=== PATIENT | female | born 1980 | race Caucasian/White ===

== ENCOUNTER 2018-07-18 16:09 | Observation (INO) | payer OTHER ==
--- NOTE | 2018-07-18 16:40 | ED ---
ENT HPI - General Chief complaint: ENT Stated complaint: sore throat Time Seen by Provider: 07/18/18 16:09 Source: patient, EMS, RN notes reviewed Mode of arrival: EMS Limitations: no limitations - History of Present Illness Initial comments: This is a 38-year-old female with a benign past medical history who had the onset last evening of a sore throat which got progressively worse today she states she had difficulty swallowing this morning.. No fevers chills or sweats she did have some slight right ear pain. She presented to [facility] and after workup was discovered to have evidence of epiglottitis. No ENT is available she was transferred here for further evaluation. She denies any fevers chills nausea vomiting sweats or other symptoms no other medical history she is a smoker of about one half pack per day. She was noted also have an elevated white blood cell count. She was given IV Unasyn as well as Decadron. At this time she is in no distress he still has a slight sore throat she does not require any pain medication at this time. MD complaint: sore throat - Related Data Home Medications Medication Instructions Recorded Confirmed Naproxen Sodium [Aleve] 220 mg PO DAILY PRN 07/18/18 07/18/18 Vitamin C/Biotin [Hair, Skin and 1 tab PO DAILY 07/18/18 07/18/18 Nails] Allergies Allergy/AdvReac Type Severity Reaction Status Date / Time No Known Allergies Allergy Verified 07/18/18 16:29 Review of Systems ROS Statement: Those systems with pertinent positive or pertinent negative responses have been documented in the HPI. ROS Other: All systems not noted in ROS Statement are negative. Past Medical History Past Medical History: No Reported History History of Any Multi-Drug Resistant Organisms: None Reported Past Surgical History: Cholecystectomy Past Psychological History: No Psychological Hx Reported Smoking Status: Current every day smoker Past Alcohol Use History: Rare Past Drug Use History: None Reported General Exam - General Exam Comments Initial Comments: This a well-developed well-nourished awake alert oriented 3 female Limitations: no limitations General appearance: alert, in no apparent distress Head exam: Present: atraumatic, normocephalic, normal inspection Eye exam: Present: normal appearance, PERRL, EOMI. Absent: scleral icterus, conjunctival injection, periorbital swelling ENT exam: Present: normal exam, mucous membranes moist, other (Mild posterior pharyngeal erythema no exudates no overt swelling noted to the uvula or peritonsillar region.) Neck exam: Present: normal inspection, full ROM (No stridor JVD or bruits), lymphadenopathy, other. Absent: tenderness, meningismus Respiratory exam: Present: normal lung sounds bilaterally. Absent: respiratory distress, wheezes, rales, rhonchi, stridor Cardiovascular Exam: Present: regular rate, normal rhythm, normal heart sounds. Absent: systolic murmur, diastolic murmur, rubs, gallop, clicks GI/Abdominal exam: Present: soft, normal bowel sounds. Absent: distended, tenderness, guarding, rebound, rigid Extremities exam: Present: normal inspection, full ROM, normal capillary refill. Absent: tenderness, pedal edema, joint swelling, calf tenderness Back exam: Present: normal inspection Neurological exam: Present: alert, oriented X3, CN II-XII intact Psychiatric exam: Present: normal affect, normal mood Skin exam: Present: warm, dry, intact, normal color. Absent: rash Course Vital Signs 07/18/18 07/18/18 16:11 17:56 Temperature 98.6 F 98.5 F Pulse Rate 71 60 Respiratory 18 18 Rate Blood Pressure 138/81 134/92 O2 Sat by Pulse 97 98 Oximetry Medical Decision Making - Medical Decision Making Reevaluation patient is resting comfortably she does have some throat pain. She will be admitted did discuss case with Dr. Moyer. ENT will be consulted - Radiology Data Radiology results: report reviewed (I did review the imaging and reports are is evidence of possible epiglottitis phlegmon isn't ruled out.), image reviewed Disposition Clinical Impression: Epiglottitis, Leukocytosis Disposition: ADMITTED IP TO THIS [facility] Condition: Stable Referrals: None,Stated [Primary Care Provider] - 1-2 days
[2018-07-18] MEDS ORDERED: KETOROLAC 30 MG/ML 1 ML VIAL IVP STA (17:44)
[2018-07-18] MEDS ORDERED: ACETAMINOPHEN TAB 325 MG TAB PO PRN (18:06)
[2018-07-18] MEDS ORDERED: NALOXONE 0.4 MG/ML 1 ML VIAL IV PRN (18:06)
[2018-07-18 19:58] VITALS: RESP 16
[2018-07-18] MEDS ORDERED: MORPHINE SULFATE 2 MG/ML SYRINGE IVP PRN (20:20)
[2018-07-18] MEDS: SODIUM CHLORIDE 0.9% 1,000 ML IV SCH (20:39)
[2018-07-18] MEDS: DEXAMETHASONE SOD PHOSPHATE 10 MG/ML 1 ML VIAL IV SCH (20:39)
[2018-07-18] MEDS: KETOROLAC 30 MG/ML 1 ML VIAL IVP SCH (23:22)
[2018-07-18] MEDS: PIPERACILLIN-TAZOBACTAM 3.375 GM in SODIUM CHLORIDE 0.9% 100 ML IVPB SCH (23:22)
[2018-07-19] MEDS: KETOROLAC 30 MG/ML 1 ML VIAL IVP SCH ×3 (05:41→17:23)
[2018-07-19] MEDS: PIPERACILLIN-TAZOBACTAM 3.375 GM in SODIUM CHLORIDE 0.9% 100 ML IVPB SCH ×2 (07:30→17:04)
[2018-07-19] MEDS: DEXAMETHASONE SOD PHOSPHATE 10 MG/ML 1 ML VIAL IV SCH (07:30)
--- NOTE | 2018-07-19 07:44 | CONS ---
CONSULTATION REASON FOR CONSULTATION: Epiglottitis. HISTORY: This is a 38-year-old white female who presented to outside ER yesterday morning with 6- 8 hour history of a sore throat, which was diffuse, but more on the right than the left in the lower throat. This was progressing and was having difficulty with swallowing. She had CT scan which had a question of epiglottitis and therefore was transferred to this hospital. She is seen by Dr. Britt who felt that she was in no distress, but was admitted for IV antibiotics and steroids. She is tolerating her own secretions and had no stridor or voice changes. She has improved some, so he felt that she could be seen this morning. She has improved overnight. She is tolerating oral fluids without difficulty. She has had no respiratory difficulty or voice changes. She has not had sore throats in the past. She does smoke. She had a white blood cell count of 19,000 at the outside hospital. She has been afebrile during this admission. She felt that the IV antibiotics and steroids did help her symptoms. PAST MEDICAL HISTORY: Unremarkable. PAST SURGICAL HISTORY: Cholecystectomy. ALLERGIES: No known drug allergies. MEDICATIONS: Zosyn and Decadron. Outside medications naproxen, vitamin C with biotin 8. SOCIAL HISTORY: Does smoke 1/2 pack of cigarettes per day. Alcohol consumption rare. REVIEW OF SYSTEMS: As in the chart already and noncontributory, other than that as above. PHYSICAL EXAM: GENERAL: This is a well-developed adult white female in no acute distress. Her voice is normal. There is no stridor. She is tolerating her own secretions and drinking water without difficulty. VITAL SIGNS: Show she is afebrile with all vital signs stable otherwise. HEENT/HEAD: Normocephalic and atraumatic. EARS: Bilaterally canals clear. Nose shows no drainage or obstruction. Mouth and throat, oropharynx shows tonsils +2 without erythema or exudate. The hypopharynx and larynx shows slight edema of the epiglottis as well as arytenoids bilaterally with no erythema. Normal vocal cord mobility. Excellent airway overall. No masses or focal swelling noted. swelling otherwise noted. Neck is supple without adenopathy or tenderness. ASSESSMENT: 1. Acute supraglottitis. 2. Tobacco abuse. PLAN: Patient has improved markedly. Her illness may be even viral in nature. She is on empiric Zosyn and Decadron. She will continue on the present medications today. Would recommend at least 2 more doses of IV antibiotics and IV steroids and if doing well at that point, may be able to be discharged. Discharge medications would need to be continued steroids and antibiotics. Antibiotic choice would be something such as cefuroxime. Advising of smoking also. The primary service will assess her still today. She should have repeat CBC also. Will leave to the discretion of the primary service. This may be skewed somewhat also. However, based on the fact that she has been on steroids. Patient then could follow up in our office later this week to be sure she is progressing and if discharged tonight or tomorrow morning, then she will call if she has any recurrent symptoms. If there are questions regarding this consultation, please feel free to contact me. BOONE / SATHYA: [phone] /
--- NOTE | 2018-07-19 07:56 | PCN ---
PROCEDURE NOTE PROCEDURE NOTE: PREOPERATIVE DIAGNOSIS: Epiglottitis. POSTOPERATIVE DIAGNOSIS: Mild supraglottitis. PROCEDURE: Flexible laryngoscopy. ANESTHESIA: None. COMPLICATIONS: None. BLOOD LOSS: None. FINDINGS: See consult note. PROCEDURE DESCRIPTION: Patient was in her hospital bed and informed consent was obtained. Flexible laryngoscopy was performed to the left nasal cavity with systematic evaluation of left nasal cavity, nasopharynx, oropharynx, hypopharynx and larynx with the above findings noted. The laryngoscope was withdrawn. Patient tolerated the procedure well with no complications. Between consultation and procedure approximately 40 minutes spent including consultation and counseling. MMODL / IJN: [id number] /
[2018-07-19 12:46] VITALS: BP 124/77; PULSE 71; TEMP 98.6
--- NOTE | 2018-07-19 14:42 | P.HPIM ---
History of Present Illness H&P Date: 07/19/18 Chief Complaint: Pain in the throat 38-year-old female with no significant past medical history comes in for above- mentioned complaints. Patient says that she was okay until Thursday when she started having pain in the right side of the throat which is diffuse he said that she was having difficulty swallowing. She went into the ER where she had a CAT scan done which shows questionable epiglottitis. She was transferred to [facility] ER but that concern and to be evaluated by ENT. Patient did not complain of any fever or chills, no chest pain racing heart, no headache, loss of vision or blurry vision, no stiff neck, noting only numbness of his extremities, no itch no rash. ER course-temperatures 98.6 respiratory rate 16 pulse 71 blood pressure 124/77 satting 97 percent on room air. As per the labwork done the other ER she was having elevated WBC. She was started on Decadron and Zosyn and admitted to the hospitalist service for further evaluation and management. Review of Systems All systems: negative Past Medical History Past Medical History: Cancer Additional Past Medical History / Comment(s): Cervical cancer 2018 History of Any Multi-Drug Resistant Organisms: None Reported Past Surgical History: Cholecystectomy Additional Past Surgical History / Comment(s): Cervical cancer removal 2018 Past Anesthesia/Blood Transfusion Reactions: No Reported Reaction Past Psychological History: No Psychological Hx Reported Smoking Status: Current every day smoker Past Alcohol Use History: Rare Past Drug Use History: None Reported Medications and Allergies Home Medications Medication Instructions Recorded Confirmed Type Naproxen Sodium [Aleve] 220 mg PO DAILY PRN 07/18/18 07/18/18 History Vitamin C/Biotin [Hair, Skin and 1 tab PO DAILY 07/18/18 07/18/18 History Nails] Acetaminophen Tab [Tylenol] 650 mg PO Q6HR PRN #60 tab 07/19/18 Rx Cefuroxime Axetil [Ceftin] 500 mg PO BID 10 Days #6 tab 07/19/18 Rx methylPREDNISolone Dose Pack 4 mg PO DIRECTED #21 package 07/19/18 Rx [Medrol Dose Pack] Allergies Allergy/AdvReac Type Severity Reaction Status Date / Time No Known Allergies Allergy Verified 07/18/18 16:29 Physical Exam Vitals: Vital Signs Temp Pulse Pulse Pulse Resp BP BP 07/19/18 12:45 98.6 F 71 16 124/77 07/19/18 05:00 97.5 F L 53 L 16 93/53 07/18/18 23:45 72 16 07/18/18 18:56 98.1 F 71 16 139/71 07/18/18 17:56 98.5 F 60 18 134/92 07/18/18 16:11 98.6 F 71 18 138/81 Pulse Ox 07/19/18 12:45 97 07/19/18 05:00 97 07/18/18 23:45 07/18/18 18:56 95 07/18/18 17:56 98 07/18/18 16:11 97 Intake and Output 07/18/18 07/19/18 07/19/18 22:59 06:59 14:59 Intake Total 213 431 2051 Balance 696 113 8548 Intake: Intake, IV Titration 100 260 100 Amount Piperacillin-Tazobactam 3 100 100 .375 gm In Sodium Chloride 0.9% 100 ml @ 25 mls/hr IVPB Q8HR [facility]AD Rx# :[id number] Sodium Chloride 0.9% 1, 100 160 000 ml @ 20 mls/hr IV . Q24H ZIYAD Rx#:[id number] Oral [phone] Other: Voiding Method Toilet Toilet # Voids 1 1 3 Weight 84.368 kg On exam, alert and oriented x3. HEENT: Conjunctivae normal. eyes normal. NECK: No JVD. No thyroid enlargement. No LNs not able to notice any erythema or any swelling in the throat CARDIOVASCULAR: S1, S2 RESPIRATION: Breath sounds diminished in the bases. No rhonchi or crackles. No bronchial breathing. ABDOMEN: Soft, nontender . No guarding. no masses palpable. No ascites, No hepatosplenomegaly.Bowel sounds heard. LEGS: No edema. no swelling NERVOUS SYSTEM: Cranial N 2-12 grossly normal. Moves all 4 limbs. No focal deficits. No sensory deficit. No signs of cerebellar dysfucntion. Skin: no ulcer no rash Joints: No active swelling. No inflammation. Lymphatic system. No LN neck axilla or groin. Thrombosis Risk Factor Assmnt - Choose All That Apply Any of the Below Risk Factors Present?: No Other Risk Factors: No Other congenital or acquired thrombophilia - If yes, enter type in comment: No Thrombosis Risk Factor Assessment Level: Very Low Risk Assessment and Plan Assessment: - Acute epiglottitis - Obesity Plan - We will admit the patient to MedSurg - Continue Zosyn and steroids as per ENT recommendations - ENT following the patient - Continue IV fluids - DVT and GI prophylaxis - We'll order for lab work in the morning - Patient is full code Time with Patient: Greater than 30
--- NOTE | 2018-07-19 14:45 | P.DS ---
Providers Date of admission: 07/19/18 08:11 Attending physician: Guzman Moyer MD Consults: 07/18/18 18:08 Consult Physician Routine Consulting Provider: Jackson Mccarthy Consult Reason/Comments: Possible epiglottitis Do you want consulting provider notified?: Yes Primary care physician: Stated None Hospital Course: 38-year-old female was admitted for epiglottitis. Patient was seen by ENT who did alert the scope done which showed supraglottitis. ENT suggested to continue the Zosyn and the steroids for a few more doses and then the patient can be discharged. Patient is to follow with ENT no weak and also get outpatient CBC done. Patient will therefore be discharged after the second dose of Zosyn. We'll send her home on cefuroxime as recommended by ENT and Medrol Dosepak. Patient Condition at Discharge: Good Plan - Discharge Summary Discharge Rx Participant: Yes New Discharge Prescriptions: New Acetaminophen Tab [Tylenol] 650 mg PO Q6HR PRN #60 tab PRN Reason: Mild Pain Or Fever > 100.5 Cefuroxime Axetil [Ceftin] 500 mg PO BID 10 Days #6 tab methylPREDNISolone Dose Pack [Medrol Dose Pack] 4 mg PO DIRECTED #21 package Continue Vitamin C/Biotin [Hair, Skin and Nails] 1 tab PO DAILY Naproxen Sodium [Aleve] 220 mg PO DAILY PRN PRN Reason: Pain Discharge Medication List Naproxen Sodium [Aleve] 220 mg PO DAILY PRN 07/18/18 [History] Vitamin C/Biotin [Hair, Skin and Nails] 1 tab PO DAILY 07/18/18 [History] Acetaminophen Tab [Tylenol] 650 mg PO Q6HR PRN #60 tab 07/19/18 [Rx] Cefuroxime Axetil [Ceftin] 500 mg PO BID 10 Days #6 tab 07/19/18 [Rx] methylPREDNISolone Dose Pack [Medrol Dose Pack] 4 mg PO DIRECTED #21 package 07/19/18 [Rx] Follow up Appointment(s)/Referral(s): Jackson Mccarthy MD [STAFF PHYSICIAN] - 1 Week None,Stated [Primary Care Provider] - 1-2 days Ambulatory/Diagnostic Orders: Complete Blood Count w/diff [LAB.AMB] Time Frame: 3 Days, Location: None Selected Activity/Diet/Wound Care/Special Instructions: If you notice ased swelling, increased pain in the throat increased fevers not able to tolerate food or increased drooling of saliva, increased confusion, increased lethargy please come right back to the ER or call 911. Care Plan Goals (MU): Discharge after the second dose of antibiotic after 10 PM tonight Discharge Disposition: HOME SELF-CARE
[2018-07-19 15:32] LABS: Basophils % (A) 0 %; Eosinophils # (A) 0.1 k/uL (0-0.7); Eosinophils % (A) 1 %; HCT 47.9 % (34.0-46.0); HGB 15.7 gm/dL (11.4-16.0); Lymphocytes # (A) 2.3 k/uL (1.0-4.8); Lymphocytes % (A) 11 %; MCH 32.3 pg (25.0-35.0); MCHC 32.7 g/dL (31.0-37.0); MCV 98.9 fL (80.0-100.0); Mean Platelet Volume 8.3; Monocytes # (A) 0.8 k/uL (0-1.0); Monocytes % (A) 4 %; Neutrophils % (A) 84 %; Platelet Count 298 k/uL (150-450); RBC 4.84 m/uL (3.80-5.40); RDW 12.1 % (11.5-15.5); WBC 20.4 k/uL (3.8-10.6)
[2018-07-19] MEDS ORDERED: DEXAMETHASONE SOD PHOSPHATE 4 MG/ML 1 ML VIAL IV SCH (18:00)
[2018-07-19] MEDS: SODIUM CHLORIDE 0.9% 1,000 ML IV SCH (19:18)
== END 2018-07-19 20:24 | disposition home or self-care (01) ==
LOC: EC 16:09 → 3NMEDONC 18:07 → OBSVTOIN 07-19 08:11 → INTOOBSV 07-19 08:11 → UNDODISIN 07-19 20:24
PROVIDERS: ADMIT Internal Medicine; ATTEND Internal Medicine
PROC: 0CJS8ZZ Inspection of Larynx, Via Natural or Artificial Opening Endoscopic (ICD-10-PCS; principal; 2018-07-19)
DX: J04.30 Supraglottitis, unspecified, without obstruction (principal); E66.9 Obesity, unspecified; F17.210 Nicotine dependence, cigarettes, uncomplicated; Z85.41 Personal history of malignant neoplasm of cervix uteri; Z90.49 Acquired absence of other specified parts of digestive tract; Z68.31 Body mass index [BMI] 31.0-31.9, adult
CPT/HCPCS: 31575; 96376 ×2; 96365; 96366; 96375 ×2; 99284; 85025; G0378 ×3; J2543 ×2; J1100 ×3; J1885 ×2; J2270; 96374